=== PATIENT | female | born 1950 | race Caucasian/White ===

== ENCOUNTER → 2025-02-13 08:25 | Outpatient (REF) | payer MEDICARE, SELFPAY | LOC: WOUND 08:25 | PROVIDERS: ATTENDING PHYSICIAN Surgery | DX: L97.322 Non-pressure chronic ulcer of left ankle with fat layer exposed (principal); Z79.01 Long term (current) use of anticoagulants; Z86.718 Personal history of other venous thrombosis and embolism | CPT/HCPCS: 11042; 99203 ==

== ENCOUNTER → 2025-02-20 10:28 | Outpatient (REF) | payer MEDICARE, SELFPAY | LOC: WOUND 10:28 | PROVIDERS: ATTENDING PHYSICIAN Surgery | DX: L97.322 Non-pressure chronic ulcer of left ankle with fat layer exposed (principal); Z79.01 Long term (current) use of anticoagulants; Z86.718 Personal history of other venous thrombosis and embolism | CPT/HCPCS: 99213 ==